=== PATIENT | female | born 1945 | race Caucasian/White ===

== ENCOUNTER 2017-09-23 12:07 | Inpatient (IN) ==
--- NOTE | 2017-09-23 12:44 | Emergency Department Note ---
Disposition Clinical Impression: Abnormal laboratory test Disposition: Still a Patient Condition: Good Time of Disposition: 12:45 General Adult HPI - General Chief complaint: ED Recheck/Abnormal Lab/Rx Stated complaint: Abnormal Labs Time Seen by Provider: 09/23/17 12:27 Source: patient Limitations: no limitations Nursing Notes Reviewed: Yes Vital Signs Reviewed: Yes - History of Present Illness Pain Scale: 0 - Related Data Home Medications Medication Instructions Recorded Confirmed Omeprazole [PriLOSEC] 40 mg PO DAILY 04/24/15 07/27/17 Albuterol Sulfate [Albuterol 2 puff IH Q4H PRN 12/24/16 07/27/17 Inhaler] Previous Rx's Medication Instructions Recorded Ferrous Sulfate [Iron] 325 mg PO DAILY #30 tablet 07/27/17 Folic Acid 1 mg PO DAILY #90 tablet 07/27/17 Spironolactone [Aldactone] 50 mg PO DAILY #30 tablet 07/27/17 Ondansetron ODT [Zofran ODT] 4 mg SL Q8HR PRN #6 tab.rapdis 08/27/17 Allergies Allergy/AdvReac Type Severity Reaction Status Date / Time ibuprofen Allergy Unknown Unknown Verified 04/25/17 13:25 Past Medical History - Past Medical History Medical history: Reports: cirrhosis, COPD, GERD Surgical history: Reports: , hysterectomy Psychiatric history: Reports: no psych history - Social History Smoking Status: Current every day smoker Smokeless Tobacco Status: No Alcohol use: Reports: none Drug use: Reports: none Physical Exam - General Limitations: no limitations General appearance: alert, in no apparent distress Course - Reevaluation(s) Reevaluation #1: Attestation note I did independently examine and verified the physical examination findings evaluation workup and disposition of this patient. We had independent face-to- face examination and discussion. The patient was seen with the emergency medicine resident Dr. Kt Morales I examined this patient and my medical decision-making was reviewed with the Resident Physician/CAM MILLING MACHINE OPERATOR/PA. I agree with the documented findings, disposition and treatment plan as described except to the extent set forth below. Briefly: 71-year-old female history of nonalcoholic hepatitis. We sent in by her surgeon for elevated liver enzymes". On the patient had an elevated total bilirubin of 6.1. Patient has some epigastric discomfort have a negative ultrasound recently patient get an ammonia level repeat labs and noncontrast abdominal pelvic CT. Patient has scleral icterus. No jaundice of the skin. Disposition pending. Patient is afebrile with stable vital signs Time: 12:43 Vital Signs Temperature 98.5 F 09/23/17 12:19 Pulse Rate 90 09/23/17 12:19 Respiratory Rate 18 09/23/17 12:19 Blood Pressure 142/81 09/23/17 12:19 O2 Sat by Pulse Oximetry 96 09/23/17 12:19 Temperature 98.5 F 09/23/17 12:19 Pulse Rate 90 09/23/17 12:19 Respiratory Rate 18 09/23/17 12:19 Blood Pressure 142/81 09/23/17 12:19 O2 Sat by Pulse Oximetry 96 09/23/17 12:19 Oxygen Delivery Oxygen Delivery Room Air
--- NOTE | 2017-09-23 12:49 | Emergency Department Note ---
Disposition Clinical Impression: Abnormal laboratory test, Hepatic encephalopathy, Hyperammonemia, Scleral icterus, Total bilirubin, elevated, History of cirrhosis Disposition: Admitted As Inpatient Condition: Good Forms: ED Satisfaction Letter Time of Disposition: 14:22 Recheck wound or abnormal lab - General Chief Complaint: ED Recheck/Abnormal Lab/Rx Stated Complaint: Abnormal Labs Time Seen by Provider: 09/23/17 12:27 Source: patient Mode of arrival: ambulatory Limitations: no limitations Nursing Notes Reviewed: Yes Vital Signs Reviewed: Yes - History of Present Illness HPI Narrative: Patient is a 71-year-old female with past medical history of cirrhosis, follows with Dr. Diamond but has not seen him for the past 2 years. She presents today due to nausea, vomiting, epigastric and right upper quadrant pain for the past 3-4 weeks. She states that she had an ultrasound and was seen by Dr. Thibodeaux with surgery yesterday and was told that "it was not her gallbladder. "She says she was referred to see her GI specialist but that she cannot see him for 2 weeks. She had basic blood work drawn within the past few days and was called and told that her bilirubin levels were elevated. She came to the ED for further assessment. Her son accompanies her and states that she is a little confused from her baseline and is concern for high ammonia levels. The patient herself has requested that I check her ammonia level while she is here in the department. She denies any nausea or vomiting for the past 3 days but does admit to diarrhea almost daily. Denies any other fevers, chest pain, shortness of breath. - Related Data Home Medications Medication Instructions Recorded Confirmed Omeprazole [PriLOSEC] 40 mg PO DAILY 04/24/15 07/27/17 Albuterol Sulfate [Albuterol 2 puff IH Q4H PRN 12/24/16 07/27/17 Inhaler] Previous Rx's Medication Instructions Recorded Ferrous Sulfate [Iron] 325 mg PO DAILY #30 tablet 07/27/17 Folic Acid 1 mg PO DAILY #90 tablet 07/27/17 Spironolactone [Aldactone] 50 mg PO DAILY #30 tablet 07/27/17 Ondansetron ODT [Zofran ODT] 4 mg SL Q8HR PRN #6 tab.rapdis 08/27/17 Allergies Allergy/AdvReac Type Severity Reaction Status Date / Time ibuprofen Allergy Unknown Unknown Verified 04/25/17 13:25 All systems ED: reviewed and negative except as stated. Constitutional: Denies: fever Cardiovascular: Denies: chest pain, palpitations Respiratory: Denies: cough, dyspnea, wheezes Gastrointestinal: Reports: abdominal pain, nausea, vomiting, diarrhea. Denies: constipation, hematemesis, melena, hematochezia Genitourinary: Denies: urgency, dysuria, frequency Neurological: Reports: confusion. Denies: headache, weakness, numbness, paresthesias Past Medical History - Past Medical History Attestation: Yes The following information was validated with the patient. Source: patient Medical history: Reports: cirrhosis, COPD, GERD Surgical history: Reports: , hysterectomy Psychiatric history: Reports: no psych history - Social History Smoking Status: Current every day smoker Smokeless Tobacco Status: No Alcohol use: Reports: none Drug use: Reports: none Physical Exam - General Limitations: no limitations General appearance: alert, in no apparent distress - Head Head exam: atraumatic, normocephalic, normal inspection - Eye Eye exam: Present: PERRL, EOMI, scleral icterus - ENT ENT exam: normal exam, normal oropharynx, mucous membranes moist - Neck Neck exam: Present: normal inspection, full ROM, trachea midline - Chest Chest inspection: Present: normal inspection, symmetric chest wall rise - Respiratory Respiratory exam: Present: normal lung sounds bilaterally - Cardiovascular Cardiovascular exam: Present: regular rate, normal rhythm, normal heart sounds - Abdominal Exam Abdominal exam: Present: soft, tenderness (Mild epigastric and right upper quadrant pain.). Absent: distention, guarding, rebound, rigidity, Vizcaino's sign , Rovsing's sign, tenderness at McBurney's Point - Extremities Exam Extremities exam: Present: normal inspection, full ROM. Absent: tenderness, pedal edema - Neurological Exam Neurological exam: Present: alert, oriented X3 - Psychiatric Psychiatric exam: Present: normal affect, normal mood - Skin Skin exam: Present: warm, dry, intact, normal color Course Course Narrative: Patient mildly hypertensive. Otherwise, the rest of the vitals within normal limits. Physical exam shows a patient in no acute distress, smiling, laughing. She is alert and oriented 3, son thinks she is altered from baseline. She's answering questions fairly appropriately for me. She has some mild epigastric and right upper quadrant pain I exam. Otherwise, heart regular rate and rhythm, lungs clear to auscultation. 14:17 labs showed total bili of 6.6, hyperammonemia at 95. Patient denies ever being on lactulose in the past. CT scan shows cirrhosis of the liver with possible portal hypertension. Also incidental finding of abdominal aortic aneurysm at 3.1 cm. No evidence of acute cholecystitis on CT scan. Current concern for early hepatic encephalopathy, hyperammonemia, worsening cirrhosis of the liver. We will admit for further care. Abdomen/Pelvis CT 09/23/17 12:43 IMPRESSION: Multiple diverticula to the colon, predominately to the sigmoid colon. Sigmoid colon is nondistended and no definite bowel wall thickening is seen. However, there does appear to be some mild pericolonic inflammatory change in the region of the sigmoid colon and early diverticulitis cannot be entirely excluded. There is a small crescentic focus of focal fluid intraperitoneal within the pelvis towards the right could reflect some reactive free fluid within the pelvis, but developing abscess not entirely excluded. No evidence for obstruction. Cirrhotic liver along with findings compatible with portal hypertension with stable splenomegaly along with varices to the upper abdomen. Stable appearance to the gallbladder with likely some sludge and possibly some stones to the gallbladder but without CT evidence for acute cholecystitis. Stable infrarenal abdominal aortic aneurysm measuring 3.1 cm. RECOMMENDATIONS: Managing Abdominal Aortic Aneurysms 2.6-2.9 cm: Every 5 years* 3.0-3.4 cm: Every 3 years. 3.5-3.9 cm: Every 1 year. 4.0-4.4 cm: Every 1 year. Recommend vascular consultation. 4.5-5.4 cm: Every 6 months. Recommend vascular consultation. Greater than or equal to 5.5 cm: Referral to vascular surgeon. *For abdominal aortas with maximum diameter of 2.6-2.9 cm meeting criteria for AAA (>50% of proximal normal segment). Reference: J Vasc Surg. 2008;50(4 Suppl):S2-49 D/ / 09/23/2017 13:30:21 Antione Treadwell MD / stephan Interpreting Provider: Antione Treadwell MD Vital Signs Temperature 98.5 F 09/23/17 12:19 Pulse Rate 90 09/23/17 12:19 Respiratory Rate 18 09/23/17 12:19 Blood Pressure 142/81 09/23/17 12:19 O2 Sat by Pulse Oximetry 96 09/23/17 12:19 Temperature 98.5 F 09/23/17 12:19 Pulse Rate 90 09/23/17 12:19 Respiratory Rate 18 09/23/17 12:19 Blood Pressure 142/81 09/23/17 12:19 O2 Sat by Pulse Oximetry 96 09/23/17 12:19 Oxygen Delivery Oxygen Delivery Room Air Recheck wound or abnormal lab - MDM Narrative Medical decision making narrative: labs showed total bili of 6.6, hyperammonemia at 95. Patient denies ever being on lactulose in the past. CT scan shows cirrhosis of the liver with possible portal hypertension. Also incidental finding of abdominal aortic aneurysm at 3.1 cm. No evidence of acute cholecystitis on CT scan. Current concern for early hepatic encephalopathy, hyperammonemia, worsening cirrhosis of the liver. We will admit for further care. - Medical Records Medical records reviewed: Yes I reviewed the patient's medical records. - Lab Data Lab results reviewed: Yes I reviewed the patient's lab results. Result diagrams: 09/23/17 12:35 09/23/17 12:35 Lab Results 09/23/17 09/23/17 09/23/17 Range/Units 12:35 12:35 12:36 WBC 4.7 (4.3-11.1) K/mcL RBC 4.42 (3.82-4.97) M/mcL Hgb 14.3 (11.5-15.4) g/dL Hct 41.7 (35.3-44.9) % MCV 94.3 (83.0-100.0) fL MCH 32.4 (28.0-33.3) pg MCHC 34.3 (31.6-35.5) g/dL RDW 13.7 (11.5-14.5) % Plt Count 97 L (140-400) K/mcL MPV 10.5 (9.4-12.4) fL Immature Gran % 0.2 (0-4) % Seg Neutrophils % 72.8 % Lymphocytes % 19.6 % Monocytes % 5.3 % Eosinophils % 1.3 % Basophils % 0.8 % Neutrophils # 3.4 (1.6-8.9) K/mcL Lymphocytes # 0.9 (0.6-4.6) K/mcL Monocytes # 0.3 (0.0-1.3) K/mcL Eosinophils # 0.1 (0.0-0.6) K/mcL Basophils # 0.0 (0.0-0.2) K/mcL Immature Plt Fraction 3.7 (1.1-6.1) % Sodium 136 (136-145) mEq/L Potassium 3.8 (3.5-5.1) mEq/L Chloride 104 (98-107) mEq/L Carbon Dioxide 23 (23-29) mEq/L BUN 12 (8-23) mg/dL Creatinine 1.01 (0.60-1.20) mg/dL Est GFR ( Amer) > 60 (> 60) Est GFR (Non-Af Amer) 54 L (> 60) BUN/Creatinine Ratio 12 (6-26) Glucose 129 H (70-105) mg/dL Calculated Osmolality 283 (280-300) Calcium 9.7 (8.6-10.3) mg/dL Total Bilirubin 6.6 H (0.3-1.0) mg/dL AST 53 H (13-39) Units/L ALT 34 (7-52) Units/L Alkaline Phosphatase 198 H (34-104) Units/L Ammonia 95 H (16-53) mcmol/L Serum Total Protein 6.8 (6.4-8.9) g/dL Albumin 4.0 (3.5-5.7) g/dL Globulin 2.8 (2.4-3.5) g/dL Albumin/Globulin Ratio 1.4 (1.1-2.2) Urine Color (Yellow) Urine Clarity (Clear) Urine pH (5.0-8.0) pH Units Ur Specific [place] (1.010-1.025) Urine Protein (Neg-Trace) mg/dL Urine Glucose (UA) (Normal) mg/dL Urine Ketones (Negative) mg/dL Urine Blood (Negative) Urine Nitrite (Negative) Urine Bilirubin (Negative) Urine Urobilinogen (Normal) mg/dL Ur Leukocyte Esterase (Negative) Urine Microscopic WBC (0-3) per hpf Ur Squamous Epith Cells (None-Few) per lpf Urine Bacteria (None-Few) per hpf Hyaline Casts (None-Few) per lpf 03/30/18 Range/Units 13:22 WBC (4.3-11.1) K/mcL RBC (3.82-4.97) M/mcL Hgb (11.5-15.4) g/dL Hct (35.3-44.9) % MCV (83.0-100.0) fL MCH (28.0-33.3) pg MCHC (31.6-35.5) g/dL RDW (11.5-14.5) % Plt Count (140-400) K/mcL MPV (9.4-12.4) fL Immature Gran % (0-4) % Seg Neutrophils % % Lymphocytes % % Monocytes % % Eosinophils % % Basophils % % Neutrophils # (1.6-8.9) K/mcL Lymphocytes # (0.6-4.6) K/mcL Monocytes # (0.0-1.3) K/mcL Eosinophils # (0.0-0.6) K/mcL Basophils # (0.0-0.2) K/mcL Immature Plt Fraction (1.1-6.1) % Sodium (136-145) mEq/L Potassium (3.5-5.1) mEq/L Chloride (98-107) mEq/L Carbon Dioxide (23-29) mEq/L BUN (8-23) mg/dL Creatinine (0.60-1.20) mg/dL Est GFR ( Amer) (> 60) Est GFR (Non-Af Amer) (> 60) BUN/Creatinine Ratio (6-26) Glucose (70-105) mg/dL Calculated Osmolality (280-300) Calcium (8.6-10.3) mg/dL Total Bilirubin (0.3-1.0) mg/dL AST (13-39) Units/L ALT (7-52) Units/L Alkaline Phosphatase (34-104) Units/L Ammonia (16-53) mcmol/L Serum Total Protein (6.4-8.9) g/dL Albumin (3.5-5.7) g/dL Globulin (2.4-3.5) g/dL Albumin/Globulin Ratio (1.1-2.2) Urine Color Carbon A (Yellow) Urine Clarity Cloudy A (Clear) Urine pH 6.0 (5.0-8.0) pH Units Ur Specific [place] 1.016 (1.010-1.025) Urine Protein Negative (Neg-Trace) mg/dL Urine Glucose (UA) Normal (Normal) mg/dL Urine Ketones Trace H (Negative) mg/dL Urine Blood Negative (Negative) Urine Nitrite Negative (Negative) Urine Bilirubin Moderate H (Negative) Urine Urobilinogen >=8.0 H (Normal) mg/dL Ur Leukocyte Esterase Small H (Negative) Urine Microscopic WBC 0-3 (0-3) per hpf Ur Squamous Epith Cells Many H (None-Few) per lpf Urine Bacteria Moderate H (None-Few) per hpf Hyaline Casts None Seen (None-Few) per lpf - Radiology Data Radiology results reviewed: Yes I reviewed the patient's radiology results. Abdomen/Pelvis CT 09/23/17 12:43 IMPRESSION: Multiple diverticula to the colon, predominately to the sigmoid colon. Sigmoid colon is nondistended and no definite bowel wall thickening is seen. However, there does appear to be some mild pericolonic inflammatory change in the region of the sigmoid colon and early diverticulitis cannot be entirely excluded. There is a small crescentic focus of focal fluid intraperitoneal within the pelvis towards the right could reflect some reactive free fluid within the pelvis, but developing abscess not entirely excluded. No evidence for obstruction. Cirrhotic liver along with findings compatible with portal hypertension with stable splenomegaly along with varices to the upper abdomen. Stable appearance to the gallbladder with likely some sludge and possibly some stones to the gallbladder but without CT evidence for acute cholecystitis. Stable infrarenal abdominal aortic aneurysm measuring 3.1 cm. RECOMMENDATIONS: Managing Abdominal Aortic Aneurysms 2.6-2.9 cm: Every 5 years* 3.0-3.4 cm: Every 3 years. 3.5-3.9 cm: Every 1 year. 4.0-4.4 cm: Every 1 year. Recommend vascular consultation. 4.5-5.4 cm: Every 6 months. Recommend vascular consultation. Greater than or equal to 5.5 cm: Referral to vascular surgeon. *For abdominal aortas with maximum diameter of 2.6-2.9 cm meeting criteria for AAA (>50% of proximal normal segment). Reference: J Vasc Surg. 2008;50(4 Suppl):S2-49 D/ /23/2017 13:30:21 Antione Treadwell MD / [email or web address] Interpreting Provider: MD Curt Scott - Curt Situation: Demographics, MOA Background: Presenting Complaint, Relevant PMH, Meds, & Allergies Assessment: Vital Signs, Course and respsone to treatment, Exam Concerns, Patient/Family Expectation, Pertinant Lab Results Recommendation: Barrier(s) to disposition, Recommendation based on pending studies, treatments, or consults S.B.AJanet Report Given to: Dr. Jamila Elias Repor Time: 14:22
[2017-09-23 12:55] LABS: Basophils % 0.8 %; Eosinophils % 1.3 %; Hemoglobin 14.3 g/dL (11.5-15.4); Red Cell Distribution Width 13.7 % (11.5-14.5)
[2017-09-23 12:57] LABS: Eosinophils # 0.1 K/mcL (0.0-0.6); Hematocrit 41.7 % (35.3-44.9); Immature Granulocytes % 0.2 % (0-4); Immature Platelets 3.7 % (1.1-6.1); Lymphocytes # 0.9 K/mcL (0.6-4.6); Lymphocytes % 19.6 %; Mean Corpuscular HGB Conc 34.3 g/dL (31.6-35.5); Mean Corpuscular Hemoglobin 32.4 pg (28.0-33.3); Mean Corpuscular Volume 94.3 fL (83.0-100.0); Mean Platelet Volume 10.5 fL (9.4-12.4); Monocytes # 0.3 K/mcL (0.0-1.3); Monocytes % 5.3 %; Red Blood Count 4.42 M/mcL (3.82-4.97); Segmented Neutrophils % 72.8 %
[2017-09-23 12:59] LABS: Neutrophils # 3.4 K/mcL (1.6-8.9); Platelet Count 97 K/mcL (140-400)
[2017-09-23 13:36] LABS: Bilirubin,Urine Moderate (Negative); Blood,Urine Negative (Negative); Clarity,Urine Cloudy (Clear); Color,Urine Orange (Yellow); Glucose,Urine (UA) Normal (Normal); Ketones,Urine Trace mg/dL (Negative); Leukocyte Esterase,Urine Small (Negative); Nitrite,Urine Negative (Negative); Protein,Urine Negative (Neg-Trace); Specific Gravity,Urine 1.016 (1.010-1.025); Urobilinogen,Urine >=8.0 mg/dL (Normal)
[2017-09-23 13:38] LABS: Hyaline Casts,Urine None Seen per lpf (None-Few); Squamous Epithelial Cell,Urine Many per lpf (None-Few); WBC,Urine 0-3 per hpf (0-3)
[2017-09-23 13:40] LABS: Alanine Aminotransferase 34 Units/L (7-52); Albumin/Globulin Ratio 1.4 (1.1-2.2); Alkaline Phosphatase 198 Units/L (34-104); Aspartate Amino Transferase 53 Units/L (13-39); BUN/Creatinine Ratio 12 (6-26); Bilirubin,Total 6.6 mg/dL (0.3-1.0); Blood Urea Nitrogen 12 mg/dL (8-23); Calcium 9.7 mg/dL (8.6-10.3); Carbon Dioxide 23 mEq/L (23-29); Chloride 104 mEq/L (98-107); Globulin 2.8 g/dL (2.4-3.5); Glucose 129 mg/dL (70-105); Osmolality,Calculated 283 (280-300); Potassium 3.8 mEq/L (3.5-5.1); Sodium 136 mEq/L (136-145); Total Protein 6.8 g/dL (6.4-8.9); eGFR For African Americans > 60 (> 60); eGFR For Non-African Americans 54 (> 60)
[2017-09-23 13:54] LABS: Bacteria,Urine Moderate per hpf (None-Few)
--- NOTE | 2017-09-23 16:46 | Internal Med History&Physical ---
Date of Encounter: 09/23/17 Time of Encounter: 15:00 Assessment and Plan (1) Hepatic encephalopathy Current visit: Yes Status: Acute Patient had episodes of confusion at home per spouse but has now resolved as patient is alert and oriented 3 on exam Patient with ammonia levels elevated at 95 in the ER. Will give patient lactulose and monitor (2) Cirrhosis Current visit: No Status: Acute Patient has long-standing history of cirrhosis with portal hypertension, splenomegaly and varices Patient now with total bilirubin of 6.6 and was 1.5 approximately 4 weeks ago Patient also with scleral icterus worsening abdominal distention and pain. GI not available this weekend and discussed with general surgery who agrees with transferred to [facility] for manager staffing specialist Qualifiers: Ascites presence: unspecified Qualified Code(s): K74.60 - Unspecified cirrhosis of liver (3) Total bilirubin, elevated Current visit: Yes Status: Acute Patient with total bilirubin of 6.6 today from 1.5 on 08/27/17 (4) Tobacco abuse Current visit: No Status: Chronic Patient [id number] (5) DVT prophylaxis Current visit: Yes Status: Acute SCDs Internal Medicine - H&P: HPI Chief complaint: Abdominal pain Admitted From: Home Plans for Post Hospital Care: Home History of present illness: Patient is a 71-year-old female with past medical history significant for liver cirrhosis with splenomegaly and portal hypertension in addition to varices who presents to the ER on 09/23/17 due to confusion and abdominal pain. Patient reports of having intermittent symptoms of abdominal pain for the past 10 years but has become worse in the last 4 weeks. Patient also reports of having difficulty PO in the last 4 weeks as well. Patient reports after PO her stomach bloats she also has had nausea/vomiting recently. She is known to GI here at [place] but has not been able to make an appointment for recent follow-up. In the ER, patient was found to have ammonia level of [address] of the abdomen/pelvis showed no findings including following: Multiple diverticula to the colon, predominately to the sigmoid colon with some mild pericolonic inflammatory change in the region of the sigmoid colon concerns for early diverticulitis. Additional findings showed cirrhotic liver along with findings compatible with portal hypertension with stable splenomegaly along with varices to the upper abdomen. Patient will be admitted to medical surgical floor for further management. Past Med Surg Social Fam HX - Past Medical History Medical history: cirrhosis, COPD, GERD Psychiatric history: no psych history - Past Surgical History Surgical History: , hysterectomy - Social History Smoking Status: Current every day smoker Packs per day: 0.5 Smokeless Tobacco Status: No Alcohol use: none Drug use: none - Family History Grandmother Living Status: Hx Family Cardiac Disorders: Yes Hx Family Cancer: Yes Internal Medicine - H&P: Meds Omeprazole [PriLOSEC] 40 mg PO DAILY 04/24/15 [History] Albuterol Sulfate [Albuterol Inhaler] 2 puff IH Q4H PRN 12/24/16 [History] Ferrous Sulfate [Iron] 325 mg PO DAILY #30 tablet 07/27/17 [Rx] Folic Acid 1 mg PO DAILY #90 tablet 07/27/17 [Rx] Spironolactone [Aldactone] 50 mg PO DAILY #30 tablet 07/27/17 [Rx] 3 Allergy/AdvReac Type Severity Reaction Status Date / Time ibuprofen Allergy Unknown Unknown Verified 09/23/17 14:40 All Systems PM: A 10-system review of systems was performed and is negative for pertinent findings except as documented above in the HPI. - Constitutional Vitals: Temp Pulse Resp BP Pulse Ox 97.6 F 79 17 129/73 95 09/23/17 15:43 09/23/17 15:43 09/23/17 16:05 09/23/17 16:05 09/23/17 15:43 General appearance: Present: A&O X 3, no acute distress, answers questions appropriately - Eye Eye exam: Present: scleral icterus - ENT ENT exam: Present: mucous membranes moist - Respiratory Respiratory exam: Present: CTAB. Absent: accessory muscle use, rales, rhonchi, wheezes - Cardiovascular Cardiovascular exam: Present: RRR, +S1, +S2. Absent: diastolic murmur, gallop, rubs, systolic murmur - GI/Abdominal GI/Abdominal exam: Present: soft, tenderness. Absent: distended - Extremities Exam Extremities exam: Absent: pedal edema - Neurological Exam Neurological exam: Present: oriented X3 - Psychiatric Psychiatric exam: Present: normal mood - Skin Skin exam: Present: normal color Internal Med - H&P Results - Labs CBC & Chem 7: 09/23/17 12:35 09/23/17 12:35
[2017-09-23] MEDS ORDERED: Naloxone 0.4 MG/ML INJ IVP PRN (17:06)
[2017-09-23 17:33] LABS: INR 1.2; Prothrombin Time 12.9 Seconds (9.4-12.1)
[2017-09-23] MEDS ORDERED: Lactulose Oral Soln 20 GM/30 ML UDC PO SCH (21:00)
[2017-09-24 00:47] VITALS: BP 109/67
[2017-09-24] MEDS ORDERED: Folic Acid 1 MG TABLET PO SCH (09:00)
--- NOTE | 2017-09-24 10:42 | Discharge Summary ---
Date of Encounter: 09/24/17 Time of Encounter: 00:00 - Discharge Diagnosis (1) Hepatic encephalopathy Priority: Primary Status: Acute (2) Cirrhosis Priority: Primary Status: Acute Qualifiers: Ascites presence: unspecified Qualified Code(s): K74.60 - Unspecified cirrhosis of liver (3) Total bilirubin, elevated Priority: Primary Status: Acute (4) Tobacco abuse Priority: Secondary Status: Chronic Hospital course: Patient is a 71-year-old female with past medical history significant for liver cirrhosis with splenomegaly and portal hypertension in addition to varices who presents to the ER on 09/23/17 due to confusion and abdominal pain. Patient reports of having intermittent symptoms of abdominal pain for the past 10 years but has become worse in the last 4 weeks. Patient also reports of having difficulty PO in the last 4 weeks as well. Patient reports after PO her stomach bloats she also has had nausea/vomiting recently. She is known to GI here at [facility] but has not been able to make an appointment for recent follow-up. In the ER, patient was found to have ammonia level of [address] of the abdomen/pelvis showed no findings including following: Multiple diverticula to the colon, predominately to the sigmoid colon with some mild pericolonic inflammatory change in the region of the sigmoid colon concerns for early diverticulitis. Additional findings showed cirrhotic liver along with findings compatible with portal hypertension with stable splenomegaly along with varices to the upper abdomen. However, due to patient's long-standing history of cirrhosis with portal hypertension, splenomegaly and varices, now with total bilirubin of 6.6 and was 1.5 approximately 4 weeks ago, in addition to exam findings of scleral icterus worsening abdominal distention and pain, patient will need to be transferred to tertiary center ([facility]) due to the fact that GI not available over the weekend. [facility] was contacted and will accept the patient to be managed by cabana attendant. - Time Spent with Patient Total time spent providing and/or coordinating discharge services: - Discharge Medications Home Medications: Omeprazole [PriLOSEC] 40 mg PO DAILY 04/24/15 [History] Albuterol Sulfate [Albuterol Inhaler] 2 puff IH Q4H PRN 12/24/16 [History] Ferrous Sulfate [Iron] 325 mg PO DAILY #30 tablet 07/27/17 [Rx] Folic Acid 1 mg PO DAILY #90 tablet 07/27/17 [Rx] Spironolactone [Aldactone] 50 mg PO DAILY #30 tablet 07/27/17 [Rx] Allergies/Adverse Reactions: 3 Allergy/AdvReac Type Severity Reaction Status Date / Time ibuprofen Allergy Unknown Unknown Verified 09/23/17 14:40 Date of admission: 09/23/17 17:06 Primary care physician: Dino Alejandro MD - Constitutional Vitals: Temp Pulse Resp BP Pulse Ox 97.8 F 76 16 109/67 96 09/24/17 00:00 09/24/17 00:00 09/24/17 00:00 09/24/17 00:35 09/24/17 00:00 General appearance: Present: A&O X 3, no acute distress, answers questions appropriately - Eye Eye exam: Present: scleral icterus - Respiratory Respiratory exam: Present: CTAB. Absent: accessory muscle use, rales, rhonchi, wheezes - Cardiovascular Cardiovascular exam: Present: RRR, +S1, +S2. Absent: diastolic murmur, gallop, rubs, systolic murmur - GI/Abdominal GI/Abdominal exam: Present: tenderness - Patient Status Disposition: Transfer Critical Access Hosp Condition: Good - Discharge Instructions Follow Up With: Dino Alejandro MD [Primary Care Provider] - - VTE Reasons for not Prescribing Prophylaxis: Medical contraindication
== END 2017-09-24 01:20 | disposition critical access hospital (66) | DRG 442 ==
LOC: 2NENU 12:07 → EMEROO 12:07 → 2NENU 16:06
PROVIDERS: ADMIT Hospitalist; ATTEND Internal Medicine

== ENCOUNTER 2020-03-14 06:12 | Inpatient (IN) ==
[2020-03-14] MEDS ORDERED: *HR* FentaNYL (PF) 100 MCG/2 ML VIAL ONE ×2 (06:46→08:49)
[2020-03-14] MEDS ORDERED: *HR* Rocuronium Bromide 50 MG/5 ML VIAL ONE ×2 (06:46→10:18)
[2020-03-14] MEDS ORDERED: Lidocaine -MPF 2% 2 ML VIAL ONE (06:46)
[2020-03-14] MEDS ORDERED: *HR* Propofol 200 MG/20 ML VIAL IVP ONE (06:46)
[2020-03-14] MEDS ORDERED: Dexamethasone 4 MG/ML VIAL ONE (06:46)
[2020-03-14] MEDS ORDERED: Ondansetron 4 MG/2 ML VIAL ONE (06:46)
[2020-03-14] MEDS ORDERED: cefOXitin 2,000 MG in Water for inj. (sterile) 20 ML IVP ONE (06:57)
[2020-03-14] MEDS ORDERED: Ringers Solution, Lactated 1,000 ML IVC SCH (07:00)
[2020-03-14] MEDS ORDERED: Lidocaine -MPF 4% 5 ML AMPUL ONE (07:01)
[2020-03-14] MEDS ORDERED: *HR* Succinylcholine 200 MG/10 ML VIAL IVP ONE (07:05)
[2020-03-14] MEDS ORDERED: *HR* HYDROcodone/Acet 5/325 mg TABLET PO PRN (07:06)
[2020-03-14] MEDS ORDERED: *HR* HYDROmorphone PF 0.5 MG/0.5 ML SYRINGE IVP PRN (07:06)
[2020-03-14] MEDS ORDERED: Ondansetron 4 MG/2 ML VIAL IVP ONE (07:06)
[2020-03-14] MEDS ORDERED: CefOXitin 1,000 MG VIAL ONE (07:16)
[2020-03-14] MEDS ORDERED: Isovue-300 50ML VIAL ONE (07:16)
[2020-03-14] MEDS ORDERED: CefOXitin 2,000 MG VIAL ONE (07:55)
[2020-03-14] MEDS ORDERED: Naloxone 0.4 MG/ML INJ IVP PRN (13:04)
[2020-03-14] MEDS ORDERED: *HR* HYDROmorphone 20 MG/20 ML PCA IVC PRN (13:04)
[2020-03-14] MEDS ORDERED: Ondansetron 4 MG/2 ML VIAL IVP PRN (13:04)
[2020-03-14] MEDS: 0.9 % Sodium Chloride 1,000 ML IVC SCH ×2 (15:21→22:58)
[2020-03-14] MEDS: Acetaminophen IV 1,000 MG/100 ML INFUS..BTL IVPB SCH ×2 (17:37→23:14)
[2020-03-15] MEDS: Acetaminophen IV 1,000 MG/100 ML INFUS..BTL IVPB SCH ×3 (05:30→16:47)
[2020-03-15 06:45] LABS: Basophils % 0.2 %; Eosinophils % 0.1 %; Hematocrit 28.8 % (35.3-44.9); Immature Granulocytes % 0.4 % (0-4); Lymphocytes # 1.3 K/mcL (0.6-4.6); Lymphocytes % 10.6 %; Mean Corpuscular HGB Conc 33.3 g/dL (31.6-35.5); Mean Corpuscular Hemoglobin 31.5 pg (28.0-33.3); Mean Corpuscular Volume 94.4 fL (83.0-100.0); Mean Platelet Volume 10.6 fL (9.4-12.4); Monocytes # 1.1 K/mcL (0.0-1.3); Monocytes % 8.9 %; Platelet Count 103 K/mcL (140-400); Red Blood Count 3.05 M/mcL (3.82-4.97); Red Cell Distribution Width 13.9 % (11.5-14.5); Segmented Neutrophils % 79.8 %
[2020-03-15 06:46] LABS: Hemoglobin 9.6 g/dL (11.5-15.4); White Blood Count 12.5 K/mcL (4.3-11.1)
[2020-03-15 07:04] LABS: Potassium 5.5 mEq/L (3.5-5.1)
[2020-03-15] MEDS: 0.9 % Sodium Chloride 1,000 ML IVC SCH ×2 (07:30→17:02)
[2020-03-15] MEDS: Pantoprazole 40 MG VIAL IVP SCH (08:43)
[2020-03-15] MEDS: cefOXitin 1,000 MG in 0.9 % Sodium Chloride Mini Bag 100 ML IVPB SCH ×2 (10:49→22:12)
[2020-03-15] MEDS: *HR* Heparin 5,000 UNIT/ML VIAL SQ SCH (14:14)
[2020-03-15] MEDS ORDERED: 0.9 % Sodium Chloride 500 ML IVC ONE (14:44)
[2020-03-16] MEDS: 0.9 % Sodium Chloride 1,000 ML IVC SCH ×4 (00:46→20:29)
[2020-03-16] MEDS: *HR* Heparin 5,000 UNIT/ML VIAL SQ SCH ×3 (00:47→23:51)
[2020-03-16] MEDS: Acetaminophen IV 1,000 MG/100 ML INFUS..BTL IVPB SCH ×5 (00:47→23:30)
[2020-03-16 03:40] LABS: Bacteria,Urine Moderate per hpf (None-Few); Bilirubin,Urine Negative (Negative); Blood,Urine Large (Negative); Clarity,Urine Turbid (Clear); Color,Urine Light-Orange (Yellow); Glucose,Urine (UA) Normal (Normal); Ketones,Urine Trace mg/dL (Negative); Leukocyte Esterase,Urine Negative (Negative); Mucus,Urine Few per lpf (None-Few); Nitrite,Urine Negative (Negative); Protein,Urine 70 mg/dL (Neg-Trace); RBC,Urine TNTC per hpf (0-3); Specific Gravity,Urine 1.017 (1.010-1.025); Squamous Epithelial Cell,Urine Few per hpf (None-Few); Urobilinogen,Urine Normal (Normal); WBC,Urine 15-30 per hpf (0-3)
[2020-03-16 03:45] LABS: Sodium, Urine 60.5 mEq/L
[2020-03-16 05:40] LABS: Basophils % 0.2 %; Mean Corpuscular HGB Conc 34.2 g/dL (31.6-35.5); Mean Corpuscular Hemoglobin 31.7 pg (28.0-33.3)
[2020-03-16 05:43] LABS: Hematocrit 22.2 % (35.3-44.9); Hemoglobin 7.6 g/dL (11.5-15.4); Immature Platelets 4.6 % (1.1-6.1); Lymphocytes # 1.5 K/mcL (0.6-4.6); Lymphocytes % 13.8 %; Mean Corpuscular Volume 92.5 fL (83.0-100.0); Mean Platelet Volume 10.7 fL (9.4-12.4); Monocytes # 0.9 K/mcL (0.0-1.3); Monocytes % 8.4 %; Platelet Count 76 K/mcL (140-400); Segmented Neutrophils % 76.6 %; White Blood Count 10.5 K/mcL (4.3-11.1)
[2020-03-16 05:50] LABS: Potassium 4.8 mEq/L (3.5-5.1)
[2020-03-16] MEDS: Pantoprazole 40 MG VIAL IVP SCH (08:40)
[2020-03-16 09:30] LABS: Uric Acid 8.8 mg/dL (2.3-7.6)
[2020-03-16] MEDS: cefOXitin 1,000 MG in 0.9 % Sodium Chloride Mini Bag 100 ML IVPB SCH ×2 (09:40→21:36)
[2020-03-16] MEDS ORDERED: 0.9 % Sodium Chloride 250 ML ONE ×2 (11:12→14:26)
[2020-03-17] MEDS: 0.9 % Sodium Chloride 1,000 ML IVC SCH ×3 (03:22→21:37)
[2020-03-17 05:10] LABS: Basophils % 0.2 %; Hematocrit 28.8 % (35.3-44.9); Immature Granulocytes % 0.7 % (0-4)
[2020-03-17 05:13] LABS: Hemoglobin 9.5 g/dL (11.5-15.4); Immature Platelets 3.1 % (1.1-6.1); Lymphocytes # 0.6 K/mcL (0.6-4.6); Lymphocytes % 9.8 %; Mean Corpuscular Hemoglobin 32.3 pg (28.0-33.3); Mean Platelet Volume 10.6 fL (9.4-12.4); Monocytes # 0.5 K/mcL (0.0-1.3); Monocytes % 7.6 %; Neutrophils # 4.8 K/mcL (1.6-8.9); Red Blood Count 2.94 M/mcL (3.82-4.97); Red Cell Distribution Width 14.2 % (11.5-14.5); Segmented Neutrophils % 81.7 %; White Blood Count 5.9 K/mcL (4.3-11.1)
[2020-03-17 05:19] LABS: Platelet Count 54 K/mcL (140-400)
[2020-03-17] MEDS: Acetaminophen IV 1,000 MG/100 ML INFUS..BTL IVPB SCH ×3 (05:51→12:49)
[2020-03-17 07:53] LABS: Potassium 4.7 mEq/L (3.5-5.1)
[2020-03-17] MEDS: cefOXitin 1,000 MG in 0.9 % Sodium Chloride Mini Bag 100 ML IVPB SCH ×2 (09:02→21:20)
[2020-03-17] MEDS: Pantoprazole 40 MG VIAL IVP SCH (09:02)
[2020-03-17] MEDS: Acetylcysteine 10% 2 ML INHSOL IH SCH ×3 (10:42→22:47)
[2020-03-17] MEDS: Albuterol 2.5 MG/3 ML NEBULIZER IH SCH ×3 (10:42→22:46)
[2020-03-17] MEDS: *HR* Heparin 5,000 UNIT/ML VIAL SQ SCH (11:19)
[2020-03-18] MEDS: *HR* Heparin 5,000 UNIT/ML VIAL SQ SCH ×2 (00:47→14:07)
[2020-03-18] MEDS: Acetaminophen IV 1,000 MG/100 ML INFUS..BTL IVPB SCH ×4 (01:00→09:07)
[2020-03-18] MEDS: Acetylcysteine 10% 2 ML INHSOL IH SCH ×4 (03:26→19:57)
[2020-03-18] MEDS: Albuterol 2.5 MG/3 ML NEBULIZER IH SCH ×4 (03:27→19:56)
[2020-03-18] MEDS: 0.9 % Sodium Chloride 1,000 ML IVC SCH ×2 (04:42→14:11)
[2020-03-18 05:19] LABS: Basophils % 0.2 %; Eosinophils % 0.2 %
[2020-03-18 05:21] LABS: Hematocrit 28.8 % (35.3-44.9); Hemoglobin 9.5 g/dL (11.5-15.4); Immature Granulocytes % 0.6 % (0-4); Immature Platelets 3.5 % (1.1-6.1); Lymphocytes # 0.5 K/mcL (0.6-4.6); Lymphocytes % 9.9 %; Mean Corpuscular Hemoglobin 31.5 pg (28.0-33.3); Mean Corpuscular Volume 95.4 fL (83.0-100.0); Mean Platelet Volume 9.9 fL (9.4-12.4); Monocytes # 0.4 K/mcL (0.0-1.3); Monocytes % 6.6 %; Neutrophils # 4.4 K/mcL (1.6-8.9); Red Blood Count 3.02 M/mcL (3.82-4.97); Red Cell Distribution Width 14.5 % (11.5-14.5); Segmented Neutrophils % 82.5 %; White Blood Count 5.3 K/mcL (4.3-11.1)
[2020-03-18 05:23] LABS: Platelet Count 59 K/mcL (140-400)
[2020-03-18 05:36] LABS: Calcium 8.4 mg/dL (8.6-10.3); Magnesium 1.7 mg/dL (1.6-2.6); Phosphorous 3.3 mg/dL (2.7-4.5); Potassium 4.2 mEq/L (3.5-5.1)
[2020-03-18] MEDS: Pantoprazole 40 MG VIAL IVP SCH (07:33)
[2020-03-18] MEDS ORDERED: *HR* HYDROmorphone 20 MG/20 ML PCA IVC PRN (10:46)
[2020-03-18] MEDS: cefOXitin 1,000 MG in 0.9 % Sodium Chloride Mini Bag 100 ML IVPB SCH ×2 (10:58→21:47)
[2020-03-18] MEDS ORDERED: Amiodarone Premix 150 MG/100 ML BAG IVPB ONE (11:21)
[2020-03-18] MEDS: *HR* Metoprolol 5 MG/5 ML VIAL IVP SCH ×3 (11:38→17:55)
[2020-03-18] MEDS ORDERED: Amiodarone Premix 360 MG/200 ML BAG IVC ONE ×2 (11:49→21:30)
[2020-03-18] MEDS ORDERED: Perflutren Lipid Microsphere 1.3 ML in 0.9 % Sodium Chloride 8.7 ML IVP PRN (15:02)
[2020-03-18] MEDS: cefOXitin 1,000 MG in Water for inj. (sterile) 10 ML IVP SCH (21:48)
[2020-03-19] MEDS: Acetaminophen IV 1,000 MG/100 ML INFUS..BTL IVPB SCH ×3 (01:26→12:01)
[2020-03-19] MEDS: *HR* Heparin 5,000 UNIT/ML VIAL SQ SCH ×2 (01:27→12:54)
[2020-03-19] MEDS: *HR* Metoprolol 5 MG/5 ML VIAL IVP SCH ×4 (01:32→17:20)
[2020-03-19] MEDS: 0.9 % Sodium Chloride 1,000 ML IVC SCH ×2 (01:32→09:12)
[2020-03-19] MEDS: Amiodarone Premix 360 MG/200 ML BAG IVC SCH ×2 (02:59→16:30)
[2020-03-19] MEDS: Acetylcysteine 10% 2 ML INHSOL IH SCH ×3 (03:19→16:01)
[2020-03-19] MEDS: Albuterol 2.5 MG/3 ML NEBULIZER IH SCH ×2 (03:19→10:14)
[2020-03-19] MEDS: cefOXitin 1,000 MG in Water for inj. (sterile) 10 ML IVP SCH ×2 (09:01→20:53)
[2020-03-19] MEDS: Pantoprazole 40 MG VIAL IVP SCH (09:02)
[2020-03-19 09:34] LABS: Calcium 8.5 mg/dL (8.6-10.3); Potassium 4.1 mEq/L (3.5-5.1)
[2020-03-19] MEDS: *HR* Amiodarone 200 MG TABLET PO SCH ×2 (10:17→20:55)
[2020-03-19] MEDS ORDERED: 0.9 % Sodium Chloride 1,000 ML IVC SCH (11:53)
[2020-03-19] MEDS ORDERED: Isovue-370 500 ML BOTTLE IVP ONE (13:17)
[2020-03-19 14:31] LABS: Basophils % 0.2 %; Eosinophils % 0.2 %; Hematocrit 31.1 % (35.3-44.9); Hemoglobin 9.8 g/dL (11.5-15.4); Immature Granulocytes % 1.2 % (0-4); Lymphocytes # 0.4 K/mcL (0.6-4.6); Mean Corpuscular HGB Conc 31.5 g/dL (31.6-35.5); Mean Corpuscular Hemoglobin 31.8 pg (28.0-33.3); Mean Platelet Volume 10.2 fL (9.4-12.4); Monocytes # 0.5 K/mcL (0.0-1.3); Monocytes % 4.7 %; Neutrophils # 9.9 K/mcL (1.6-8.9); Platelet Count 101 K/mcL (140-400); Red Blood Count 3.08 M/mcL (3.82-4.97); Red Cell Distribution Width 15.8 % (11.5-14.5); Segmented Neutrophils % 89.7 %
[2020-03-19 14:38] LABS: INR 1.3
[2020-03-19 14:48] LABS: Albumin 2.6 g/dL (3.5-5.7); Albumin/Globulin Ratio 1.1 (1.1-2.2); Bilirubin,Direct 2.9 mg/dL (0.0-0.2); Bilirubin,Indirect 1.7 mg/dL (0.0-1.0); Bilirubin,Total 4.6 mg/dL (0.3-1.0); Globulin 2.3 g/dL (2.4-3.5); Total Protein 4.9 g/dL (6.4-8.9)
[2020-03-19] MEDS ORDERED: Haloperidol Lactate 5 MG/ML VIAL IVP ONE (15:32)
[2020-03-19] MEDS ORDERED: Furosemide 40 MG/4 ML VIAL IVP ONE ×2 (16:12)
[2020-03-19] MEDS ORDERED: Ipratropium/Albuterol Neb 3 ML IH SCH (16:30)
[2020-03-19] MEDS: Albumin 25% 25gram/100mL 25 GM/100 ML IV.SOLN IVC SCH ×2 (17:19→20:09)
[2020-03-19] MEDS ORDERED: D5 IVPB ONE (21:19)
[2020-03-19] MEDS ORDERED: WATER IVPB ONE (21:19)
[2020-03-19] MEDS ORDERED: AMIODARONE IVPB ONE (21:19)
[2020-03-19] MEDS: Levalbuterol Neb 0.63 MG/3 ML IH SCH (22:15)
[2020-03-20] MEDS: Levalbuterol Neb 0.63 MG/3 ML IH SCH ×2 (03:18→10:21)
[2020-03-20] MEDS ORDERED: 0.9 % Sodium Chloride 500 ML ONE (04:23)
[2020-03-20] MEDS: *HR* Metoprolol 5 MG/5 ML VIAL IVP SCH ×3 (05:13→13:03)
[2020-03-20] MEDS ORDERED: Albumin 25% 25gram/100mL 25 GM/100 ML IV.SOLN IVC SCH (05:15)
[2020-03-20 05:22] LABS: Eosinophils % 0.2 %; Hemoglobin 8.7 g/dL (11.5-15.4); Red Cell Distribution Width 15.9 % (11.5-14.5)
[2020-03-20 05:24] LABS: Basophils % 0.2 %; Hematocrit 27.4 % (35.3-44.9); Immature Granulocytes % 2.2 % (0-4); Immature Platelets 3.4 % (1.1-6.1); Lymphocytes # 0.4 K/mcL (0.6-4.6); Lymphocytes % 4.9 %; Mean Corpuscular HGB Conc 31.8 g/dL (31.6-35.5); Mean Corpuscular Hemoglobin 31.9 pg (28.0-33.3); Mean Corpuscular Volume 100.4 fL (83.0-100.0); Monocytes # 0.3 K/mcL (0.0-1.3); Monocytes % 3.9 %; Neutrophils # 7.8 K/mcL (1.6-8.9); Red Blood Count 2.73 M/mcL (3.82-4.97); Segmented Neutrophils % 88.6 %; White Blood Count 8.8 K/mcL (4.3-11.1)
[2020-03-20 05:37] LABS: Calcium 9.2 mg/dL (8.6-10.3); Magnesium 1.6 mg/dL (1.6-2.6); Phosphorous 4.2 mg/dL (2.7-4.5); Platelet Count 91 K/mcL (140-400); Potassium 3.9 mEq/L (3.5-5.1)
[2020-03-20] MEDS ORDERED: Acetaminophen IV 1,000 MG/100 ML INFUS..BTL IVPB SCH (09:00)
[2020-03-20] MEDS ORDERED: Furosemide 100 MG in 0.9 % Sodium Chloride 50 ML IVPB SCH (09:00)
[2020-03-20] MEDS: Pantoprazole 40 MG VIAL IVP SCH (09:38)
[2020-03-20] MEDS: cefOXitin 1,000 MG in Water for inj. (sterile) 10 ML IVP SCH ×2 (09:39→21:59)
[2020-03-20] MEDS ORDERED: Acetaminophen IV 1,000 MG/100 ML INFUS..BTL IVPB ONE (09:58)
[2020-03-20] MEDS ORDERED: Albumin 25% 25gram/100mL 25 GM/100 ML IV.SOLN ONE (11:00)
[2020-03-20] MEDS ORDERED: Albumin 25% 25gram/100mL 25 GM/100 ML IV.SOLN IVPB ONE (11:02)
[2020-03-20] MEDS ORDERED: MethylPREDNISolone 40 MG/ML VIAL ONE (11:17)
[2020-03-20] MEDS: MethylPREDNISolone 40 MG/ML VIAL IVP ONE ×2 (11:21→11:45)
[2020-03-20 11:45] LABS: ABG Base Excess -6 mEq/L (-2 to 3); ABG HCO3 20 mEq/L (21-27); ABG Oxygen Saturation 94 % (95-98); ABG PCO2 41 mmHg (35-45); ABG PH 7.29 pH Units (7.32-7.45); ABG PO2 77 mmHg (85-104); ABG TCO2 21 mEq/L (20-26)
[2020-03-20] MEDS: Albumin 25% 25gram/100mL 25 GM/100 ML IV.SOLN IVC SCH ×2 (13:29→14:26)
[2020-03-20] MEDS ORDERED: Lactulose Oral Soln 20 GM/30 ML UDC PO ONE (13:49)
[2020-03-20] MEDS: Norepinephrine 4 MG/254 ML IV.SOLN IVC SCH (14:26)
[2020-03-20] MEDS ORDERED: Bumetanide 1 MG/4 ML VIAL IVP ONE (14:30)
[2020-03-20] MEDS ORDERED: Levalbuterol Neb 0.63 MG/3 ML IH PRN (15:17)
[2020-03-20] MEDS: Ipratropium/Albuterol Neb 3 ML IH SCH ×2 (15:52→20:21)
[2020-03-20] MEDS ORDERED: Ipratropium/Albuterol Neb 3 ML IH SCH (16:00)
[2020-03-20] MEDS ORDERED: Levalbuterol Neb 0.63 MG/3 ML IH SCH (16:00)
[2020-03-20] MEDS ORDERED: Albumin 25% 25gram/100mL 25 GM/100 ML IV.SOLN IVPB SCH (16:00)
[2020-03-20] MEDS: Vasopressin 40 UNIT in D5% in Water 100 ML IVC SCH (17:35)
[2020-03-20 21:51] LABS: ABG Base Excess -7 mEq/L (-2 to 3); ABG HCO3 18 mEq/L (21-27); ABG Oxygen Saturation 92 % (95-98); ABG PCO2 34 mmHg (35-45); ABG PH 7.35 pH Units (7.32-7.45); ABG PO2 66 mmHg (85-104); ABG TCO2 19 mEq/L (20-26)
[2020-03-20 23:09] LABS: Hematocrit 21.6 % (35.3-44.9)
[2020-03-21] MEDS: Ipratropium/Albuterol Neb 3 ML IH SCH ×7 (00:02→23:43)
[2020-03-21 04:47] LABS: Mean Corpuscular Volume 98.3 fL (83.0-100.0); Red Cell Distribution Width 15.9 % (11.5-14.5)
[2020-03-21 04:49] LABS: Hemoglobin 7.4 g/dL (11.5-15.4); Immature Granulocytes % 3.7 % (0-4); Immature Platelets 4.6 % (1.1-6.1); Lymphocytes # 0.3 K/mcL (0.6-4.6); Lymphocytes % 6.9 %; Mean Corpuscular HGB Conc 32.2 g/dL (31.6-35.5); Mean Corpuscular Hemoglobin 31.6 pg (28.0-33.3); Mean Platelet Volume 10.1 fL (9.4-12.4); Monocytes # 0.1 K/mcL (0.0-1.3); Monocytes % 3.7 %; Red Blood Count 2.34 M/mcL (3.82-4.97); Segmented Neutrophils % 85.7 %; White Blood Count 3.8 K/mcL (4.3-11.1)
[2020-03-21 04:50] LABS: Neutrophils # 3.3 K/mcL (1.6-8.9); Platelet Count 61 K/mcL (140-400)
[2020-03-21 04:51] LABS: INR 1.5; Prothrombin Time 17.2 Seconds (9.4-12.1)
[2020-03-21 05:07] LABS: Magnesium 1.6 mg/dL (1.6-2.6); Phosphorous 4.1 mg/dL (2.7-4.5)
[2020-03-21 05:08] LABS: Albumin 3.9 g/dL (3.5-5.7); Albumin/Globulin Ratio 2.1 (1.1-2.2); Bilirubin,Total 4.2 mg/dL (0.3-1.0); Calcium 9.8 mg/dL (8.6-10.3); Globulin 1.9 g/dL (2.4-3.5); Potassium 3.3 mEq/L (3.5-5.1); Total Protein 5.8 g/dL (6.4-8.9)
[2020-03-21 05:09] LABS: Platelet Estimate Decreased (Normal)
[2020-03-21] MEDS ORDERED: *HR* Metoprolol 5 MG/5 ML VIAL IVP ONE ×2 (05:35→05:36)
[2020-03-21 05:36] LABS: ABG Base Excess -6 mEq/L (-2 to 3); ABG HCO3 19 mEq/L (21-27); ABG Oxygen Saturation 89 % (95-98); ABG PCO2 34 mmHg (35-45); ABG PH 7.35 pH Units (7.32-7.45); ABG PO2 58 mmHg (85-104); ABG TCO2 20 mEq/L (20-26)
[2020-03-21] MEDS ORDERED: 0.9 % Sodium Chloride 250 ML IVC SCH (06:15)
[2020-03-21] MEDS: Pantoprazole 40 MG VIAL IVP SCH (07:43)
[2020-03-21] MEDS ORDERED: Lactulose Oral Soln 20 GM/30 ML UDC PO ONE (08:28)
[2020-03-21] MEDS: Norepinephrine 4 MG/254 ML IV.SOLN IVC SCH (08:38)
[2020-03-21] MEDS: Albumin 25% 25gram/100mL 25 GM/100 ML IV.SOLN IVC SCH ×2 (08:50→09:58)
[2020-03-21] MEDS: cefOXitin 1,000 MG in Water for inj. (sterile) 10 ML IVP SCH ×2 (09:01→20:54)
[2020-03-21] MEDS ORDERED: *HR* Atropine Sulfate 1 MG/10 ML SYRINGE IVP PRN (09:49)
[2020-03-21] MEDS: Dexmedetomidine HCl 400 MCG/100 ML MLS IVC SCH ×2 (09:58→17:26)
[2020-03-21] MEDS: Vasopressin 40 UNIT in D5% in Water 100 ML IVC SCH (10:06)
[2020-03-21] MEDS: FentaNYL (PF) 1,000 MCG/100 ML IV.SOLN IVC SCH ×3 (10:08→22:36)
[2020-03-21 10:12] LABS: ABG Base Excess -7 mEq/L (-2 to 3); ABG HCO3 20 mEq/L (21-27); ABG Oxygen Saturation 99 % (95-98); ABG PCO2 44 mmHg (35-45); ABG PH 7.26 pH Units (7.32-7.45); ABG PO2 144 mmHg (85-104); ABG TCO2 21 mEq/L (20-26); Blood Gas Modality AF; Blood Gas VT 450 cc
[2020-03-21] MEDS ORDERED: Artificial Tears SOLN 15 ML BOTTLE BOTH EYES PRN (10:31)
[2020-03-21] MEDS: Chlorhexidine Rinse 15 ML MOUTHWASH MM SCH ×2 (10:48→20:54)
[2020-03-21] MEDS: Artificial Tears SOLN 15 ML BOTTLE BOTH EYES SCH ×4 (10:48→23:12)
[2020-03-21] MEDS ORDERED: Bumetanide 1 MG/4 ML VIAL IVP ONE (11:30)
[2020-03-21] MEDS ORDERED: Heparin 1,000 UNITS/500 mL 500 ML ONE (14:20)
[2020-03-21] MEDS ORDERED: *HR* Heparin 5,000 UNIT/ML VIAL ONE (14:40)
[2020-03-21] MEDS ORDERED: *HR* Alteplase (Cathflo) 2 MG VIAL IVP PRN (15:13)
[2020-03-21] MEDS ORDERED: 0.9 % Sodium Chloride 1,000 ML PRIME ONE ×2 (15:13)
[2020-03-21] MEDS ORDERED: 0.9 % Sodium Chloride 1,000 ML PRIME SCH (15:15)
[2020-03-21] MEDS: PrismaSATE BGK 4/2.5 5,000 ML CRRT SCH ×4 (15:48→21:14)
[2020-03-21 16:16] LABS: Hematocrit 23.9 % (35.3-44.9); Hemoglobin 7.6 g/dL (11.5-15.4)
[2020-03-21] MEDS: Lactulose Oral Soln 20 GM/30 ML UDC PO SCH (20:54)
[2020-03-21] MEDS ORDERED: *HR* Etomidate 20 MG/10 ML AMPUL IVP ONE (22:12)
[2020-03-22 00:20] LABS: VBG Ionized Calcium 1.22 mmol/L (1.15-1.35)
[2020-03-22 00:47] LABS: INR 1.7; Prothrombin Time 19.6 Seconds (9.4-12.1)
[2020-03-22 00:50] LABS: Albumin 4.2 g/dL (3.5-5.7); Albumin/Globulin Ratio 2.3 (1.1-2.2); Bilirubin,Total 5.5 mg/dL (0.3-1.0); Calcium 9.2 mg/dL (8.6-10.3); Globulin 1.8 g/dL (2.4-3.5); Magnesium 2.1 mg/dL (1.6-2.6); Phosphorous 3.1 mg/dL (2.7-4.5); Potassium 3.6 mEq/L (3.5-5.1)
[2020-03-22 00:54] LABS: Basophils # 0.1 K/mcL (0.0-0.2); Basophils % 0.5 %; Eosinophils % 0.2 %; Hematocrit 26.2 % (35.3-44.9); Hemoglobin 8.7 g/dL (11.5-15.4); Immature Granulocytes % 4.3 % (0-4); Lymphocytes # 0.9 K/mcL (0.6-4.6); Lymphocytes % 5.1 %; Mean Corpuscular HGB Conc 33.2 g/dL (31.6-35.5); Mean Corpuscular Hemoglobin 32.2 pg (28.0-33.3); Mean Platelet Volume 10.3 fL (9.4-12.4); Monocytes # 0.5 K/mcL (0.0-1.3); Monocytes % 2.8 %; Neutrophils # 15.3 K/mcL (1.6-8.9); Nucleated Red Blood Cells 0.3 /100 WBC (0); Platelet Count 149 K/mcL (140-400); Red Cell Distribution Width 16.4 % (11.5-14.5); Segmented Neutrophils % 87.1 %
[2020-03-22] MEDS: PrismaSATE BGK 4/2.5 5,000 ML CRRT SCH ×8 (01:12→14:07)
[2020-03-22 01:30] LABS: White Blood Count 17.6 K/mcL (4.3-11.1)
[2020-03-22] MEDS: Norepinephrine 4 MG/254 ML IV.SOLN IVC SCH ×3 (01:35→17:36)
[2020-03-22 02:48] LABS: ABG Base Excess -2 mEq/L (-2 to 3); ABG HCO3 24 mEq/L (21-27); ABG Oxygen Saturation 93 % (95-98); ABG PCO2 45 mmHg (35-45); ABG PH 7.34 pH Units (7.32-7.45); ABG PO2 71 mmHg (85-104); ABG TCO2 25 mEq/L (20-26); Blood Gas Modality ASSIST CONTROL; Blood Gas VT 480 cc
[2020-03-22] MEDS: Artificial Tears SOLN 15 ML BOTTLE BOTH EYES SCH ×6 (03:15→23:53)
[2020-03-22] MEDS: Ipratropium/Albuterol Neb 3 ML IH SCH ×6 (03:25→23:43)
[2020-03-22] MEDS: FentaNYL (PF) 1,000 MCG/100 ML IV.SOLN IVC SCH ×4 (04:00→23:08)
[2020-03-22] MEDS: *HR* Heparin 5,000 UNIT/ML VIAL IVP PRN ×2 (06:12→19:58)
[2020-03-22] MEDS: Chlorhexidine Rinse 15 ML MOUTHWASH MM SCH ×2 (08:09→20:00)
[2020-03-22] MEDS: Pantoprazole 40 MG VIAL IVP SCH (08:09)
[2020-03-22] MEDS: cefOXitin 1,000 MG in Water for inj. (sterile) 10 ML IVP SCH (09:02)
[2020-03-22] MEDS: Vasopressin 40 UNIT in D5% in Water 100 ML IVC SCH (09:15)
[2020-03-22 14:45] LABS: Fluid Source for Creatinine PERITONEAL
[2020-03-22] MEDS: Piperacillin/Tazobactam 3.375 GM in 0.9 % Sodium Chloride Mini Bag 100 ML IVPB SCH (17:28)
[2020-03-22] MEDS ORDERED: *HR* Heparin 5,000 UNIT/ML VIAL ONE (19:13)
[2020-03-22] MEDS: Phenylephrine 10 MG in 0.9 % Sodium Chloride 250 ML IVC SCH ×2 (19:58→20:30)
[2020-03-22] MEDS: Lactulose Oral Soln 20 GM/30 ML UDC PO SCH (20:00)
[2020-03-22] MEDS: Norepinephrine 8 MG in 0.9 % Sodium Chloride 250 ML IVC SCH (20:01)
[2020-03-22] MEDS: *HR* Dextrose 50 % in Water (Vial) 50 ML VIAL IVP PRN ×2 (20:55→21:23)
[2020-03-22] MEDS: D5% in Water 1,000 ML IVC PRN (21:25)
[2020-03-22] MEDS: Phenylephrine 50 MG in 0.9 % Sodium Chloride 250 ML IVC SCH (22:13)
[2020-03-23] MEDS: Norepinephrine 8 MG in 0.9 % Sodium Chloride 250 ML IVC SCH ×3 (01:21→22:05)
[2020-03-23] MEDS: Ipratropium/Albuterol Neb 3 ML IH SCH ×6 (03:27→19:46)
[2020-03-23] MEDS: Artificial Tears SOLN 15 ML BOTTLE BOTH EYES SCH ×6 (04:04→23:59)
[2020-03-23 04:51] LABS: VBG Ionized Calcium 1.18 mmol/L (1.15-1.35)
[2020-03-23 04:53] LABS: Mean Corpuscular HGB Conc 31.9 g/dL (31.6-35.5)
[2020-03-23 04:55] LABS: Hematocrit 25.7 % (35.3-44.9); Hemoglobin 8.2 g/dL (11.5-15.4); Immature Platelets 8.8 % (1.1-6.1); Mean Corpuscular Hemoglobin 31.3 pg (28.0-33.3); Mean Corpuscular Volume 98.1 fL (83.0-100.0); Mean Platelet Volume 10.2 fL (9.4-12.4); Nucleated Red Blood Cells 1.9 /100 WBC (0); Red Blood Count 2.62 M/mcL (3.82-4.97); Red Cell Distribution Width 16.7 % (11.5-14.5)
[2020-03-23 04:58] LABS: ABG Base Excess -3 mEq/L (-2 to 3); ABG HCO3 23 mEq/L (21-27); ABG Oxygen Saturation 99 % (95-98); ABG PCO2 41 mmHg (35-45); ABG PH 7.35 pH Units (7.32-7.45); ABG PO2 149 mmHg (85-104); ABG TCO2 24 mEq/L (20-26); Blood Gas Modality AF; Blood Gas VT 480 cc
[2020-03-23 05:09] LABS: Calcium 8.4 mg/dL (8.6-10.3); Phosphorous 2.7 mg/dL (2.7-4.5); Potassium 3.8 mEq/L (3.5-5.1)
[2020-03-23 05:11] LABS: Platelet Count 96 K/mcL (140-400)
[2020-03-23] MEDS ORDERED: Potassium Phosphate 44 MEQ in 0.9 % Sodium Chloride 250 ML IVPB PRN (05:15)
[2020-03-23] MEDS: Piperacillin/Tazobactam 3.375 GM in 0.9 % Sodium Chloride Mini Bag 100 ML IVPB SCH ×2 (05:21→18:25)
[2020-03-23] MEDS: FentaNYL (PF) 1,000 MCG/100 ML IV.SOLN IVC SCH ×3 (05:22→18:26)
[2020-03-23] MEDS: Phenylephrine 50 MG in 0.9 % Sodium Chloride 250 ML IVC SCH ×4 (05:22→23:05)
[2020-03-23 05:37] LABS: Anisocytosis 1+ (Not Present); Macrocytosis Present (Not Present)
[2020-03-23 05:38] LABS: Platelet Estimate Decreased (Normal)
[2020-03-23] MEDS: Chlorhexidine Rinse 15 ML MOUTHWASH MM SCH ×2 (08:39→19:23)
[2020-03-23] MEDS: Pantoprazole 40 MG VIAL IVP SCH (08:39)
[2020-03-23] MEDS: D5% in Water 1,000 ML IVC PRN (10:16)
[2020-03-23] MEDS: Vasopressin 40 UNIT in D5% in Water 100 ML IVC SCH (10:44)
[2020-03-23] MEDS: PrismaSATE BGK 4/2.5 5,000 ML CRRT SCH ×4 (11:00→15:00)
[2020-03-23] MEDS ORDERED: *HR* Heparin 5,000 UNIT/ML VIAL ONE (18:06)
[2020-03-23 18:27] LABS: VBG Ionized Calcium 1.13 mmol/L (1.15-1.35)
[2020-03-23 18:52] LABS: Albumin 3.2 g/dL (3.5-5.7); Albumin/Globulin Ratio 2.3 (1.1-2.2); Bilirubin,Total 9.3 mg/dL (0.3-1.0); Calcium 8.3 mg/dL (8.6-10.3); Globulin 1.4 g/dL (2.4-3.5); Magnesium 2.2 mg/dL (1.6-2.6); Phosphorous 3.7 mg/dL (2.7-4.5); Potassium 4.2 mEq/L (3.5-5.1); Total Protein 4.6 g/dL (6.4-8.9)
[2020-03-23] MEDS ORDERED: Amiodarone Premix 360 MG/200 ML BAG IVC ONE (19:03)
[2020-03-23] MEDS: Amiodarone Premix 360 MG/200 ML BAG IVC SCH (19:20)
[2020-03-23] MEDS: Calcium Gluconate 1gm/50mL 1 GM/50 ML BAG IVPB SCH ×2 (19:23→19:56)
[2020-03-23] MEDS: Lactulose Oral Soln 20 GM/30 ML UDC PO SCH (19:23)
[2020-03-23] MEDS: Levalbuterol Neb 1.25 MG/3 ML IH SCH (23:20)
[2020-03-24] MEDS: FentaNYL (PF) 1,000 MCG/100 ML IV.SOLN IVC SCH ×3 (00:30→12:44)
[2020-03-24] MEDS: Amiodarone Premix 360 MG/200 ML BAG IVC SCH ×2 (01:45→12:45)
[2020-03-24] MEDS: Levalbuterol Neb 1.25 MG/3 ML IH SCH ×4 (03:30→16:07)
[2020-03-24] MEDS: Phenylephrine 50 MG in 0.9 % Sodium Chloride 250 ML IVC SCH ×3 (04:16→14:47)
[2020-03-24] MEDS: Artificial Tears SOLN 15 ML BOTTLE BOTH EYES SCH ×4 (04:16→15:22)
[2020-03-24] MEDS: Norepinephrine 8 MG in 0.9 % Sodium Chloride 250 ML IVC SCH ×2 (04:16→12:45)
[2020-03-24 04:42] LABS: VBG Ionized Calcium 1.18 mmol/L (1.15-1.35)
[2020-03-24 04:46] LABS: INR 2.3; Prothrombin Time 26.1 Seconds (9.4-12.1)
[2020-03-24 05:02] LABS: Hematocrit 23.5 % (35.3-44.9)
[2020-03-24 05:04] LABS: Hemoglobin 7.6 g/dL (11.5-15.4); Immature Platelets 9.4 % (1.1-6.1); Mean Corpuscular HGB Conc 32.3 g/dL (31.6-35.5); Mean Corpuscular Hemoglobin 31.5 pg (28.0-33.3); Mean Corpuscular Volume 97.5 fL (83.0-100.0); Mean Platelet Volume 10.9 fL (9.4-12.4); Nucleated Red Blood Cells 2.6 /100 WBC (0); Red Blood Count 2.41 M/mcL (3.82-4.97); White Blood Count 20.8 K/mcL (4.3-11.1)
[2020-03-24 05:05] LABS: ABG Base Excess -3 mEq/L (-2 to 3); ABG HCO3 22 mEq/L (21-27); ABG Oxygen Saturation 94 % (95-98); ABG PCO2 37 mmHg (35-45); ABG PH 7.37 pH Units (7.32-7.45); ABG PO2 73 mmHg (85-104); ABG TCO2 23 mEq/L (20-26); Blood Gas Modality ASSIST CONTROL; Blood Gas VT 480 cc
[2020-03-24 05:11] LABS: Calcium 8.2 mg/dL (8.6-10.3); Magnesium 1.8 mg/dL (1.6-2.6); Phosphorous 3.3 mg/dL (2.7-4.5)
[2020-03-24 05:20] LABS: Platelet Count 88 K/mcL (140-400)
[2020-03-24 05:42] LABS: Anisocytosis 1+ (Not Present)
[2020-03-24 05:43] LABS: Hypochromasia Present (Not Present); Microcytosis Present (Not Present); Platelet Estimate Slight Decrease (Normal)
[2020-03-24 05:44] LABS: Lymphocytes # 2.1 K/mcL (0.6-4.6); Neutrophils # 18.7 K/mcL (1.6-8.9); Toxic Granulation Present (Not Present); Toxic Vacuolation Present (Not Present)
[2020-03-24] MEDS: Piperacillin/Tazobactam 3.375 GM in 0.9 % Sodium Chloride Mini Bag 100 ML IVPB SCH (06:31)
[2020-03-24] MEDS: Chlorhexidine Rinse 15 ML MOUTHWASH MM SCH (07:55)
[2020-03-24] MEDS: Pantoprazole 40 MG VIAL IVP SCH (07:55)
[2020-03-24] MEDS ORDERED: Micafungin 100 MG in 0.9 % Sodium Chloride Mini Bag 100 ML IVPB SCH (09:00)
[2020-03-24 09:19] LABS: Albumin 2.8 g/dL (3.5-5.7); Bilirubin,Direct 6.7 mg/dL (0.0-0.2); Bilirubin,Total 9.7 mg/dL (0.3-1.0); Globulin 1.4 g/dL (2.4-3.5); Total Protein 4.2 g/dL (6.4-8.9)
[2020-03-24] MEDS: Hydrocortisone Sodium Succ 100 MG/2 ML VIAL IVP SCH ×2 (10:08→13:10)
[2020-03-24] MEDS: D5% in Water 1,000 ML IVC PRN (11:00)
[2020-03-24] MEDS: Vasopressin 40 UNIT in D5% in Water 100 ML IVC SCH (12:20)
[2020-03-24 16:14] VITALS: BP 105/45
[2020-03-24] MEDS ORDERED: *HR* LORazepam 2 MG/ML VIAL IVP PRN (17:44)
[2020-03-24] MEDS ORDERED: Scopolamine Patch 1.5 MG PATCH.TD72 TD SCH (17:45)
== END 2020-03-24 22:13 | disposition expired | DRG 659 ==
LOC: SAMDAY 06:12 → 3ANU 12:54 → 2NNU 03-18 20:44 → ICNU 03-20 11:29
PROVIDERS: ADMIT Surgery; ATTEND Surgery